=== PATIENT | male | born 1965 ===

== ENCOUNTER 2023-07-04 13:03 | Emergency (ER) | payer MEDICAID, SELFPAY ==
--- NOTE | ~2023-07-04 | XR_ITS ---
EXAMINATION: XR FINGER, RIGHT CLINICAL INFORMATION: Laceration of the index finger. COMPARISON: None available. TECHNIQUE: 3 views of the right index finger. FINDINGS: There is a bandage over the index finger around the region of the DIP joint. This obscures bone detail. No radiopaque foreign body. There is no displaced fracture. No dislocation. XR/XR finger RT min 2V IMPRESSION: No radiopaque foreign body. No evidence of displaced fracture.
[2023-07-04 13:07] VITALS: BP 134/86; PULSE 86; O2SAT 98
--- NOTE | 2023-07-04 13:14 | ED.GENADULT ---
HPI - General Adult General Chief complaint: Wound/Laceration Stated complaint: LAC TO R INDEX FINGER Time Seen by Provider: 07/04/23 16:29 Source: patient Mode of arrival: ambulatory Limitations: no limitations History of Present Illness HPI narrative: 58 y/o right hand dominant male presents to the ER for evaluation of right index finger laceration sustained while cutting raw oysters earlier today. He states the knife slipped and he cut a piece of his right index finger off, and there was dangling skin. EMS was called who dressed the wound given active bleeding. he is not on blood thinners. he reports ability to fully flex and extend the finger. denies numbness or tingling. MD complaint: right index finger laceration Onset (ago): hour(s) Location: right and upper extremity Radiation: proximal Severity: moderate Quality: aching Pain Consistency: other (improved) Relieving factors: movement Exacerbating factors: other (palpation) Associated symptoms: denies other symptoms Treatments prior to arrival: other (bandage) Related Data Previous Rx's Medication Instructions Recorded amoxicillin 875 mg-potassium 1 tab PO BID #14 tabs 07/04/23 clavulanate 125 mg tablet Allergies Allergy/AdvReac Type Severity Reaction Status Date / Time No Known Allergies Allergy Verified 07/04/23 13:15 Review of Systems Review of Systems: Yes all other systems are reviewed and are negative [facility] Social History Social History Advance Directives: No Advance Directives Information Provided: Yes Physical Exam ED Vital Signs: Vital Signs - 24 hr 07/04/23 13:16 Temperature 98 F Pulse Rate 89 Respiratory Rate 19 Blood Pressure 119/89 Pulse Oximetry 98 Oxygen Delivery Method Room Air BMI result Body Mass Index 25.2 Appearance: Alert. Oriented X3. No acute distress. HEENT: normal inspection CVS: Normal heart rate and rhythm. Pulses normal. Respiratory: No respiratory distress. Skin: Skin warm and dry. Normal skin color. Normal skin turgor. No rashes. Extremities: dorsal aspect of the right index finger with an irregular 4cm laceration/avulsion from the PIP to the DIP with hanging skin, actively bleeding. FROM of the digit. cap refill <3 sec Neuro: Oriented X 3. No motor deficit. No sensory deficit. Course Course Course Narrative: This is a rapid medical exam: Additional HPI, ROS, PE not included below will be deferred to primary provider. Patient is a 58-year-old right hand dominant male presenting to the emergency department with complaint of laceration to right index finger while slicing vegetables prior to arrival. States the skin is hanging off. Wound bandaged to control bleeding at this time so area not visualized in triage. He denies decreased ROM to his finger. Unsure of last tetanus. Plan: x-ray, Tdap Medications Administered Discontinued Medications Generic Name Dose Route Start Last Admin Trade Name Freq PRN Reason Stop Dose Admin Diphtheria/Tetanus/Acell Pertussis 0.5 ml 07/04/23 13:16 07/04/23 16:57 Diphth,Pertus(Acell),Tet Adult 0.5 Ml Syringe IM 07/04/23 13:17 0.5 ml .ONCE ONE Administration Lidocaine HCl 10 ml 07/04/23 16:53 07/04/23 16:58 Lidocaine Hcl 1 % Mpf 5 Ml Vial SUBCUT 07/04/23 16:54 10 ml ONCE ONE Administration Medical Decision Making Medical Decision Making MDM Narrative: 58 yo male presenting with an irregular laceration and avulsion of the 1st digit on the right hand. required debridement and suturing. ongoing bleeding despite cauterization and surgicel. case c/w Dr. Cook who recommended surgicel and tight GEORGE wrap for 1 hour and then reassess. upon re-evaluation bleeding has stopped. patient counseled on wound care management and return precautions. stable for discharge home. Differential Diagnosis Differential Diagnoses: The differential diagnosis associated with the presentation includes complex finger laceration, tendon injury, arterial injury, open fracture Admission/Observation Consideration of admission/observation: Escalation of care including admission/observation considered active bleeding of the finger, difficult to control Independent Interpretation I performed an independent interpretation of an: Plain X-Ray Interpretation: x-ray without acute fracture or FB, agree w/ radiology read Radiology Impression Discussion of test interpretation with radiology: I have reviewed the radiologist's reading. Radiologist Impression: EXAMINATION: XR FINGER, RIGHT CLINICAL INFORMATION: Laceration of the index finger. COMPARISON: None available. TECHNIQUE: 3 views of the right index finger. FINDINGS: There is a bandage over the index finger around the region of the DIP joint. This obscures bone detail. No radiopaque foreign body. There is no displaced fracture. No dislocation. XR/XR finger RT min 2V IMPRESSION: No radiopaque foreign body. No evidence of displaced fracture. Independent Historian Clinical information obtained from an independent historian. History obtained from or confirmed by: EMS External Record Review External record reviewed: Outpatient record and Prior outpatient labs Prescription Management I considered prescription management with: Pain Medication and Antibiotic Critical Care Time Critical Care Time Critical Care Time: No Discharge Plan Discharge Clinical Impression: Laceration Patient Disposition: Home, Self-Care Instructions: Finger Laceration (ED) Additional Instructions: Your x-ray today was normal Take the prescribed antibiotics as directed, complete the entire course and do not miss any doses Keep elevated and compressed The surgicel on the wound will need to be rinsed off in the next 48 hours - you can use warm water or bubbling soda to help it come off Keep wound clean and covered Prescriptions: New amoxicillin-pot clavulanate 875-125 mg tablet 1 tab PO BID Qty: 14 0RF
[2023-07-04 13:16] VITALS: BP 119/89; PULSE 89; RESP 19; TEMP 36.6; O2SAT 98; BMI 25.2
[2023-07-04] MEDS: Diphth,Pertus(ACell),Tet Adult 0.5 ML SYRINGE IM (16:57)
[2023-07-04] MEDS: Lidocaine HCl 1 % MPF 5 ML VIAL 10 ML SUBCUT (16:58)
[2023-07-04 19:16] VITALS: BP 120/75; PULSE 90; RESP 16; O2SAT 100
== END 2023-07-04 19:20 | disposition home or self-care (01) ==
PROVIDERS: Emergency Provider Emergency Medicine
DX: S61.210A Laceration without foreign body of right index finger without damage to nail, initial encounter (principal); W26.0XXA Contact with knife, initial encounter; Y93.G1 Activity, food preparation and clean up; Y92.9 Unspecified place or not applicable; Y99.9 Unspecified external cause status
CPT/HCPCS: 12002; 73140; 90471; 90715; 99284